=== PATIENT | female | born 1955 | race Asian ===

== ENCOUNTER 2021-08-24 05:39 | Day surgery (SDC) | payer MEDICARE, MEDICAID ==
[2021-08-21 11:02] LABS: BASOPHILS % (AUTO) 0.7 % (0-1); EOSINOPHILS # (AUTO) 0.1 X10'3 (0-0.9); EOSINOPHILS % (AUTO) 1.5 % (0-6); LYMPHOCYTES # (AUTO) 1.7 X10'3 (1.1-4.8); MEAN CORPUSCULAR HEMOGLOBIN 29.9 PG (27.0-31.0); MEAN CORPUSCULAR HGB CONC 33.7 g/dL (33.0-36.5); MEAN CORPUSCULAR VOLUME 88.9 FL (78-98); MEAN PLATELET VOLUME 8.3 FL (7.4-10.4); MONOCYTES # (AUTO) 0.5 X10'3 (0-0.9); MONOCYTES % (AUTO) 8.8 % (2-12); NEUTROPHILS # (AUTO) 3.8 X10'3 (1.8-7.7); PRE OP HEMATOCRIT 41.1 % (35.0-45.0); PRE OP HEMOGLOBIN 13.8 g/dL (12.0-16.0); PRE OP PLATELET COUNT 222 X10'3 (140-440); RED BLOOD COUNT 4.62 X10'6 (4.20-5.60); RED CELL DISTRIBUTION WIDTH 13.4 % (11.5-14.5)
[2021-08-21 11:10] LABS: CLARITY,URINE CLEAR (Clear); COLOR,URINE YELLOW (Yellow); GLUCOSE, URINE NEGATIVE (Neg); KETONES,URINE NEGATIVE (Neg); LEUKOCYTE ESTERASE ,URINE NEGATIVE (Neg); NITRITES, URINE NEGATIVE (Neg); OCCULT BLOOD,URINE NEGATIVE (Neg); PROTEIN,URINE NEGATIVE (Neg); UROBILINOGEN,URINE 0.2 E.U/dL (0.2-1.0)
[2021-08-21 11:13] LABS: UA COLLECTION TYPE CLN CATCH MIDSTREAM
[2021-08-21 11:22] LABS: ALBUMIN 4.1 G/DL (3.4-5.0); ALBUMIN/GLOBULIN RATIO 1.1 (1.1-1.5); ALKALINE PHOSPHATASE 76 IU/L (46-116); BLOOD UREA NITROGEN 16 MG/DL (7-18); BUN/CREATININE RATIO 23.9 (6.6-38.0); CALCIUM 8.9 MG/DL (8.5-10.1); CHLORIDE 103 MMOL/L (99-107); CREATININE 0.67 MG/DL (0.40-0.90); PRE OP ALT 33 U/L (30-65); PRE OP ANION GAP 8 (8-16); PRE OP AST 23 U/L (10-37); PRE OP BILIRUB, TOTAL 0.5 MG/DL (0.0-1.0); PRE OP GLUCOSE 94 MG/DL (70-104); PRE OP POTASSIUM 4.7 MMOL/L (3.4-5.1); PRE OP SODIUM 141 MMOL/L (135-145); TOTAL CARBON DIOXIDE 30.2 MMOL/L (24-32); TOTAL PROTEIN 7.9 G/DL (6.4-8.2); eGFR 88 ML/MIN
[2021-08-24] VITALS (14 sets, daily range): BP systolic 109–150; BP diastolic 55–75
[~2021-08-24] VITALS: Ht 134.6 cm; Wt 56.7 kg
[~2021-08-24 05:39] MED LIST: ACET-1 PO; ALEN70TA37 PO; ceFAZolin 1GM/D5W- ADD-VANTAGE 50 ML IV ONE; cefazolin/dext.iso 2gm/50ml IV ONE; famotidine 20mg tablet PO ONE; ringers solution, lacted 1,000 ML IV SCH
[2021-08-24] MEDS ORDERED: BUPIVAcaine/PF 2.5mg/ml (0.25%) 10ml vial ONE (06:54)
[2021-08-24] MEDS ORDERED: bacitracin 15gm ointment TP ONE (06:54)
[2021-08-24] MEDS ORDERED: propofol inj 20 ML IV ONE (07:12)
[2021-08-24] MEDS ORDERED: fentaNYL/PF 50MCG/1 ML 2ML syringe ONE (07:12)
[2021-08-24] MEDS ORDERED: midazolam 1 mg/ML 2ml injection ONE (07:12)
[2021-08-24] MEDS ORDERED: dexamethasone sod phosphate 4mg/ml inj. ONE (07:55)
[2021-08-24] MEDS ORDERED: ondansetron/PF 4mg/2ml inj ONE (07:56)
[2021-08-24] MEDS ORDERED: morphine 4 MG/ML inj SYRINge IV PRN (08:20)
[2021-08-24] MEDS ORDERED: meperidine/PF 25mg/ml syringe IV PRN ×3 (08:20)
[2021-08-24] MEDS ORDERED: ringers solution, lacted 1,000 ML IV SCH (08:20)
[2021-08-24] MEDS ORDERED: morphine 2 MG/ML inj. syringe IV PRN (08:20)
[2021-08-24] MEDS ORDERED: proCHLORperazine 10 MG/2 ml inj IV PRN (08:20)
[2021-08-24] MEDS ORDERED: ondansetron/PF 4mg/2ml inj IV PRN (08:20)
--- NOTE | 2021-08-24 08:31 | NUR ---
Received from OR via , accompanied by Anesthesiologist DR DAVIS and report given by Anesthesiolgist. PT PRESENTS WITH 20G LEFT HAND, BOOT AND DRESSING ON RIGHT FOOT IS CLEAN DRY AND INTACT, VSS. Addendum: 08/24/21 at 0843 by Kenya Mcneil RN, RN Amended: Links added.
--- NOTE | 2021-08-24 10:31 | NUR ---
D/C HOME: ALL DISCHARGE CRITERIA HAS BEEN MET. VSS, PAIN AT A TOLERABLE LEVEL, VOIDING AND ABLE TO SAFELY AMBULATE AND TRANSFER SELF. IV TAKEN OUT WITHOUT COMPLICATIONS. ALL DISCHARGE INSTRUCTIONS COVERED WITH PATIENT AND ALL QUESTIONS ANSWERED, COPY GIVEN TO PATIENT. PATIENT TAKEN OUT VIA WHEELCHAIR TO PERSONAL VEHICLE WHERE FAMILY/FRIEND DROVE PATIENT HOME. Addendum: 08/24/21 at 1056 by Kenya Mcneil RN, RN Amended: Links added.
== END 2021-08-24 10:31 | disposition home or self-care (01) ==
LOC: PAS 05:39
PROVIDERS: ATTEND Podiatrist Foot & Ankle Surgery
DX: M21.611 Bunion of right foot (principal); M20.11 Hallux valgus (acquired), right foot; M19.071 Primary osteoarthritis, right ankle and foot; M81.0 Age-related osteoporosis without current pathological fracture; M85.80 Other specified disorders of bone density and structure, unspecified site; Z79.899 Other long term (current) drug therapy
CPT/HCPCS: 28299; 36415; 73620; 76000; 80053; 81003; 82948; 85025; 93005; A6223; C1713; J0690; J1100; J2250; J2405; J2704; J3010; J3490; J7030; J7120; Z7506; Z7508; Z7512; A4618; A6253; A6449; A7000

== ENCOUNTER 2021-09-08 12:43 | Emergency (ER) | payer MEDICARE, MEDICAID ==
[~2021-09-08] VITALS: Ht 134.6 cm; Wt 54.0 kg
[~2021-09-08 12:43] MED LIST changes: -ceFAZolin 1GM/D5W- ADD-VANTAGE 50 ML IV ONE; -cefazolin/dext.iso 2gm/50ml IV ONE; -famotidine 20mg tablet PO ONE; -ringers solution, lacted 1,000 ML IV SCH
[2021-09-08] MEDS ORDERED: pantoprazole 40mg Tablet.DR PO STA (12:50)
[2021-09-08] MEDS ORDERED: sucralfate 1gm/10ml UD suspension PO STA (12:50)
[2021-09-08] MEDS ORDERED: LIDOcaine Viscous 15ml cup MM STA (12:50)
[2021-09-08 12:53] VITALS: BP 167/75
[2021-09-08] MEDS ORDERED: sucralfate 1 gm tablet PO STA (13:24)
[2021-09-08 13:52] LABS: BASOPHILS % (AUTO) 0.4 % (0-1); EOSINOPHILS # (AUTO) 0.1 X10'3 (0-0.9); EOSINOPHILS % (AUTO) 0.5 % (0-6); HEMATOCRIT 39.4 % (35.0-45.0); LYMPHOCYTES # (AUTO) 1.4 X10'3 (1.1-4.8); LYMPHOCYTES % (AUTO) 13.6 % (21-51); MEAN CORPUSCULAR HGB CONC 32.9 g/dL (33.0-36.5); MEAN PLATELET VOLUME 7.9 FL (7.4-10.4); MONOCYTES # (AUTO) 0.7 X10'3 (0-0.9); NEUTROPHILS # (AUTO) 8.1 X10'3 (1.8-7.7); NEUTROPHILS % (AUTO) 78.5 % (42-75); PLATELET COUNT 239 X10'3 (140-440); RED BLOOD COUNT 4.48 X10'6 (4.20-5.60); RED CELL DISTRIBUTION WIDTH 13.2 % (11.5-14.5); WHITE BLOOD COUNT 10.3 X10'3 (4.5-11.0)
[2021-09-08 14:00] LABS: ALANINE AMINOTRANSFERASE 29 U/L (12-78); ALBUMIN/GLOBULIN RATIO 1.1 (1.1-1.5); ALKALINE PHOSPHATASE 78 IU/L (46-116); ANION GAP 13 (8-16); ASPARTATE AMINO TRANSFERASE 24 U/L (10-37); BILIRUBIN,TOTAL 0.7 MG/DL (0.1-1.0); BLOOD UREA NITROGEN 14 MG/DL (7-18); BUN/CREATININE RATIO 20.9 (6.6-38.0); CALCIUM 8.7 MG/DL (8.5-10.1); CHLORIDE 103 MMOL/L (99-107); CREATININE 0.67 MG/DL (0.40-0.90); GLUCOSE 98 MG/DL (70-104); POTASSIUM 3.8 MMOL/L (3.5-5.1); SODIUM 143 MMOL/L (135-145); TOTAL CARBON DIOXIDE 26.6 MMOL/L (24-32); TOTAL PROTEIN 7.6 G/DL (6.4-8.2); eGFR 88 ML/MIN
[2021-09-08] MEDS ORDERED: mag hydrox/Alum hydrox/simeth 30ml oral suspension PO ONE (15:00)
[2021-09-08] MEDS ORDERED: SUCR1TAB34 PO (15:02)
[2021-09-08] MEDS ORDERED: MAG355OR18 PO (15:02)
[2021-09-08] MEDS ORDERED: LIDO20SO16 PO (15:02)
== END 2021-09-08 15:11 | disposition home or self-care (01) ==
LOC: ER 12:44
DX: K20.90 Esophagitis, unspecified without bleeding (principal); R12 Heartburn; G89.29 Other chronic pain; Z72.89 Other problems related to lifestyle; Z79.899 Other long term (current) drug therapy
CPT/HCPCS: 36415; 80053; 85025; 99284

== ENCOUNTER 2022-01-25 05:26 | Day surgery (SDC) | payer MEDICARE, MEDICAID ==
[2022-01-19 11:04] LABS: ALBUMIN 3.6 G/DL (3.4-5.0); ALBUMIN/GLOBULIN RATIO 0.9 (1.1-1.5); ALKALINE PHOSPHATASE 72 IU/L (46-116); BLOOD UREA NITROGEN 18 MG/DL (7-18); BUN/CREATININE RATIO 22.2 (6.6-38.0); CALCIUM 8.5 MG/DL (8.5-10.1); CHLORIDE 106 MMOL/L (99-107); CREATININE 0.81 MG/DL (0.40-0.90); PRE OP ALT 29 U/L (30-65); PRE OP ANION GAP 6 (8-16); PRE OP AST 21 U/L (10-37); PRE OP BILIRUB, TOTAL 0.5 MG/DL (0.0-1.0); PRE OP GLUCOSE 92 MG/DL (70-104); PRE OP POTASSIUM 3.6 MMOL/L (3.4-5.1); PRE OP SODIUM 142 MMOL/L (135-145); TOTAL PROTEIN 7.8 G/DL (6.4-8.2); eGFR 71 ML/MIN
[2022-01-19 11:05] LABS: BASOPHILS % (AUTO) 0.3 % (0-1); EOSINOPHILS # (AUTO) 0.1 X10'3 (0-0.9); EOSINOPHILS % (AUTO) 1.1 % (0-6); LYMPHOCYTES # (AUTO) 1.9 X10'3 (1.1-4.8); LYMPHOCYTES % (AUTO) 23.6 % (21-51); MEAN CORPUSCULAR HEMOGLOBIN 29.1 PG (27.0-31.0); MEAN CORPUSCULAR HGB CONC 33.4 g/dL (33.0-36.5); MEAN CORPUSCULAR VOLUME 86.9 FL (78-98); MEAN PLATELET VOLUME 7.7 FL (7.4-10.4); MONOCYTES # (AUTO) 0.7 X10'3 (0-0.9); MONOCYTES % (AUTO) 8.3 % (2-12); NEUTROPHILS # (AUTO) 5.5 X10'3 (1.8-7.7); NEUTROPHILS % (AUTO) 66.7 % (42-75); PRE OP HEMATOCRIT 38.5 % (35.0-45.0); PRE OP HEMOGLOBIN 12.9 g/dL (12.0-16.0); PRE OP PLATELET COUNT 230 X10'3 (140-440); RED BLOOD COUNT 4.42 X10'6 (4.20-5.60); RED CELL DISTRIBUTION WIDTH 13.7 % (11.5-14.5)
[2022-01-25] VITALS (12 sets, daily range): BP systolic 116–167; BP diastolic 63–83
[~2022-01-25] VITALS: Ht 134.6 cm; Wt 55.7 kg
[~2022-01-25 05:26] MED LIST changes: -ALEN70TA37 PO; +ringers solution, lacted 1,000 ML IV SCH
[2022-01-25] MEDS ORDERED: famotidine 20mg tablet PO ONE (05:30)
[2022-01-25] MEDS ORDERED: ceFAZolin 1,000 MG in NS 50ML IVPB IV ONE (05:30)
[2022-01-25 06:23] LABS: CLARITY,URINE CLEAR (Clear); COLOR,URINE YELLOW (Yellow); GLUCOSE, URINE NEGATIVE (Neg); KETONES,URINE NEGATIVE (Neg); LEUKOCYTE ESTERASE ,URINE NEGATIVE (Neg); NITRITES, URINE NEGATIVE (Neg); OCCULT BLOOD,URINE TRACE-INTACT (Neg); PH,URINE 5.5 (4.8-8.0); PROTEIN,URINE NEGATIVE (Neg); UROBILINOGEN,URINE 0.2 E.U/dL (0.2-1.0)
[2022-01-25 06:25] LABS: UA COLLECTION TYPE CLN CATCH MIDSTREAM
[2022-01-25 06:45] LABS: BACTERIA,URINE NONE SEEN /HPF (Neg); MUCUS STRANDS NONE SEEN /LPF (Neg); RBC,URINE 0-2 /HPF (0-2); SQUAMOUS EPITHELIAL CELL,UR FEW /LPF (FEW); WBC,URINE 0-4 /HPF (0-4)
[2022-01-25] MEDS ORDERED: bacitracin 15gm ointment TP ONE (07:01)
[2022-01-25] MEDS ORDERED: BUPIVAcaine/PF 2.5mg/ml (0.25%) 10ml vial ONE (07:02)
[2022-01-25] MEDS ORDERED: fentaNYL/PF 50MCG/1 ML 2ML syringe ONE (07:25)
[2022-01-25] MEDS ORDERED: ketamine 50mg/5ml syringe ONE (07:25)
[2022-01-25] MEDS ORDERED: midazolam 1 mg/ML 2ml injection ONE (07:26)
[2022-01-25] MEDS ORDERED: propofol inj 20 ML IV ONE (07:52)
--- NOTE | 2022-01-25 08:00 | NUR ---
Received from OR via [facility], accompanied by Anesthesiologist and report given by DR. RANGEL Anesthesiologist. PATIENT WAKING UP, NO S/S OF PAIN, V/S WNL, 20G TO RUE, RIGHT FOOT SALEEM WRAP DRESSING C/D/I. ICE PACK AND ELEVATE RLE. Addendum: 01/25/22 at 0837 by Jacky Arguello RN Amended: Links added.
[2022-01-25] MEDS ORDERED: ondansetron/PF 4mg/2ml inj IV ONE (09:15)
--- NOTE | 2022-01-25 09:45 | NUR ---
ALL DISCHARGE CRITERIA HAS BEEN MET. VSS, DENIES PAIN AND NAUSEA. ABLE TO SAFELY AMBULATE AND TRANSFER SELF. IV TAKEN OUT WITHOUT ANY COMPLICATIONS. ALL DISCHARGE INSTRUCTIONS COVERED WITH PATIENT AND PATIENT'S DAUGHTER VIA PHONE AND ALL QUESTIONS ANSWERED. PATIENT TAKEN OUT VIA WHEELCHAIR TO PERSONAL VEHICLE WHERE FAMILY DROVE PATIENT HOME. PT GIVEN POST OP SHOES TO WEAR. Addendum: 01/25/22 at 1002 by Jacky Arguello RN Amended: Links added.
== END 2022-01-25 09:45 | disposition home or self-care (01) ==
LOC: PAS 05:26
PROVIDERS: ATTEND Podiatrist Foot & Ankle Surgery
DX: T84.84XA Pain due to internal orthopedic prosthetic devices, implants and grafts, initial encounter (principal); Y83.8 Other surgical procedures as the cause of abnormal reaction of the patient, or of later complication, without mention of misadventure at the time of the procedure; Z79.899 Other long term (current) drug therapy; Z98.890 Other specified postprocedural states
CPT/HCPCS: 20680; 36415; 73620; 80053; 81001; 82948; 85025; 93005; A6223; J0690; J2250; J2405; J2704; J3010; J3490; J7030; J7120; L3260; Z7506; Z7512; 76000; A4215; A4618; A6449; A7000

== ENCOUNTER 2023-05-24 21:58 | Emergency (ER) | payer MEDICARE, MEDICAID ==
[~2023-05-24] VITALS: Ht 134.6 cm; Wt 54.9 kg
[~2023-05-24 21:58] MED LIST changes: -ringers solution, lacted 1,000 ML IV SCH
[2023-05-24 22:37] VITALS: BP 143/52; PULSE 65; RESP 16; TEMP 97.2; O2SAT 99
[2023-05-24] MEDS ORDERED: amox tr/potassium clavulanate 875/125mg TAB PO ONE (22:45)
[2023-05-24] MEDS ORDERED: TETanus/Pertussis (Acell)/Diphther VAC/PF (Tdap-Adult) 0.5ml syringe IMVAC ONE (22:45)
[2023-05-24] MEDS ORDERED: AMOX-117 PO (22:51)
== END 2023-05-24 23:21 | disposition home or self-care (01) ==
LOC: ER 21:58
DX: S81.831A Puncture wound without foreign body, right lower leg, initial encounter (principal); W55.01XA Bitten by cat, initial encounter; Y93.89 Activity, other specified; Y92.89 Other specified places as the place of occurrence of the external cause; Y99.8 Other external cause status
CPT/HCPCS: 90471; 90715; 99283